=== PATIENT | male | born 1945 | race African-American/Black ===

== ENCOUNTER 2024-12-15 11:22 | Inpatient (IN) | payer MEDICARE ==
[~2024-12-15] VITALS: Ht 167.6 cm; Wt 70.3 kg
[~2024-12-15 11:22] MED LIST: ASPI-1497 PO; ATOR-2 MT; CA/D1TAB7 MT; CIPR-263 MT; CLOP75TA33 PO; FEXO-25 PO; LISI2.5T47 PO; TAMS-54 MT; TAMS-54 PO; TIMO5DRO40 EACHEYE; XALAO EACHEYE
[2024-12-15 11:23] VITALS: O2SAT 89
[2024-12-15 13:16] LABS: BASOPHILS % 0.3 % (0.0-2.0); EOSINOPHILS % 0.0 % (0.0-5.0); LYMPHOCYTES % 9.9 % (20.0-50.0); MEAN PLATELET VOLUME 8.4 fl (7.4-10.4); MONOCYTES % 8.4 % (2.0-8.0); NEUTROPHILS % 81.4 % (40.0-76.0); PLATELET 265 x1000/uL (130-400); RED BLOOD CELL COUNT 2.26 mill/uL (4.7-6.1); RED CELL DISTRIBUTION WIDTH 15.2 % (11.6-14.6)
[2024-12-15 13:19] LABS: HEMOGLOBIN. 6.7 g/dL (14.0-18.0)
[2024-12-15 13:20] LABS: HEMATOCRIT. 20.5 % (42.0-52.0)
[2024-12-15 13:23] LABS: INR 1.1
[2024-12-15 13:41] LABS: CREATININE 1.4 mg/dL (0.6-1.3)
[2024-12-15 13:42] LABS: UREA NITROGEN BLOOD 28 mg/dL (9-23)
[2024-12-15 13:43] LABS: ASPARTATE AMINOTRANSFERASE 19 IU/L (<34)
[2024-12-15 13:44] LABS: BILIRUBIN TOTAL 0.3 mg/dL (0.1-1.0); PROTEIN TOTAL 6.8 g/dL (6.0-8.3)
[2024-12-15] MEDS ORDERED: IPRATROPIUM/ALBUTEROL 0.5-3(2.5)MG/3ML NEB HHN PRN (16:45)
[2024-12-15] MEDS ORDERED: GUAIFENESIN 200MG/10ML SUGAR FREE UDC PO PRN (16:45)
[2024-12-15] MEDS ORDERED: ACETAMINOPHEN 325MG TABLET PO PRN (16:45)
[2024-12-15] MEDS ORDERED: DOCUSATE SODIUM 100MG CAPSULE PO PRN (16:45)
[2024-12-15] MEDS ORDERED: ONDANSETRON HCL 4MG/2ML INJ IV PRN (16:45)
[2024-12-15] MEDS: SODIUM CHLORIDE 0.45% 1,000 ML IV SCH (17:00)
[2024-12-15 17:30] VITALS: BP 125/76; PULSE 60; RESP 20; TEMP 36.3; O2SAT 97
[2024-12-15] MEDS: PANTOPRAZOLE SODIUM 40 MG/VIAL IV SCH (17:49)
[2024-12-15 18:09] LABS: FOLIC ACID (FOLATE) SERUM > 20.00 ng/mL (>5.38); VITAMIN B12 SERUM 434 pg/mL (211-911)
[2024-12-15 18:21] VITALS: BP 125/76; PULSE 60; RESP 20; TEMP 36.3068
[2024-12-15] MEDS ORDERED: CEFTRIAXONE 1,000 MG in DEXT 5% WATER 100 ML IV SCH (18:30)
[2024-12-15 18:40] VITALS: BP 111/62; PULSE 75; RESP 18; TEMP 36.4; O2SAT 98
[2024-12-15 19:14] VITALS: BP 111/62; PULSE 57; RESP 16; TEMP 37.1; O2SAT 99
[2024-12-15 20:20] LABS: CLARITY URINE TURBID (CLEAR); COLOR URINE RED (YELLOW)
[2024-12-15 20:23] LABS: GLUCOSE URINE NEGATIVE (NEGATIVE); KETONES URINE NEGATIVE (NEGATIVE); PH URINE 7.0 (4.5-8.0); PROTEIN URINE 3+ (NEGATIVE); SPECIFIC GRAVITY URINE 1.020 (1.005-1.030)
[2024-12-15 20:24] LABS: NITRITE URINE NEGATIVE (NEGATIVE); OCCULT BLOOD URINE 4+ (NEGATIVE); UROBILINOGEN URINE 0.2 E.U./dL (0.2-1.0)
[2024-12-15 20:29] LABS: BACTERIA URINE NONE SEEN; LEUKOCYTE ESTERASE URINE NEGATIVE (NEGATIVE); RBC URINE TNTC /hpf (0-2)
[2024-12-15] MEDS: CEFTRIAXONE 1GM/50ML 50 ML IV SCH (20:38)
[2024-12-15] MEDS: ATORVASTATIN CALCIUM 40MG TABLET PO SCH (20:38)
[2024-12-15 20:46] LABS: *AMPHETAMINES SCREEN URINE NEGATIVE (NEGATIVE)
[2024-12-15 20:47] LABS: *BARBITURATES SCREEN URINE NEGATIVE (NEGATIVE); *BENZODIAZEPINES SCREEN URINE NEGATIVE (NEGATIVE); *COCAINE SCREEN URINE NEGATIVE (NEGATIVE); CANNABINOID URINE SCREEN NEGATIVE (NEGATIVE); ECSTASY MDMA SCREEN URINE NEGATIVE (NEGATIVE); METHADONE URINE SCREEN NEGATIVE (NEGATIVE); OPIATES URINE SCREEN NEGATIVE (NEGATIVE); PHENCYCLIDINE URINE SCREEN NEGATIVE (NEGATIVE)
[2024-12-15 22:17] LABS: HEPATITIS C AB NON REACTIVE (Neg) (Negative)
[2024-12-15] MEDS: SODIUM CHLORIDE 0.9% 1,000 ML IV ONE (22:51)
[2024-12-16] VITALS: BP 103/51; PULSE 62; RESP 15; TEMP 37; O2SAT 97
[2024-12-16 01:49] LABS: TROPONIN I HIGH SENSITIVITY 13 ng/L (3.0-53)
[2024-12-16 04:00] VITALS: BP 103/51; PULSE 62; RESP 17; TEMP 37.2; O2SAT 98
[2024-12-16 06:53] LABS: BASOPHILS % 0.4 % (0.0-2.0); EOSINOPHILS % 0.5 % (0.0-5.0); HEMATOCRIT. 22.4 % (42.0-52.0); HEMOGLOBIN. 7.5 g/dL (14.0-18.0); LYMPHOCYTES % 16.9 % (20.0-50.0); MEAN PLATELET VOLUME 8.6 fl (7.4-10.4); MONOCYTES % 10.2 % (2.0-8.0); NEUTROPHILS % 72.0 % (40.0-76.0); PLATELET 233 x1000/uL (130-400); RED BLOOD CELL COUNT 2.48 mill/uL (4.7-6.1); RED CELL DISTRIBUTION WIDTH 14.4 % (11.6-14.6)
[2024-12-16 07:23] LABS: TROPONIN I HIGH SENSITIVITY 14 ng/L (3.0-53)
[2024-12-16 07:24] LABS: CREATININE 1.1 mg/dL (0.6-1.3)
[2024-12-16 07:25] LABS: TRIGLYCERIDE 97 mg/dL (0-150); UREA NITROGEN BLOOD 20 mg/dL (9-23)
[2024-12-16 07:26] LABS: LDL CHOLESTEROL 75 mg/dL (5-100); T4 FREE 1.23 ng/dL (0.89-1.76)
[2024-12-16 08:00] VITALS: BP_SYST 104; BP_SYST 120; BP_DIAS 62; PULSE 100; PULSE 64; RESP 19; TEMP 36.8; TEMP 37.2; O2SAT 98
[2024-12-16 12:00] VITALS: BP 104/62; PULSE 100; RESP 19; TEMP 37.2; O2SAT 100
[2024-12-16 16:00] VITALS: BP 140/68; PULSE 100; RESP 22; O2SAT 100
[2024-12-16 20:00] VITALS: BP 153/95; PULSE 95; RESP 22; TEMP 37.7; O2SAT 100
[2024-12-16] MEDS: ACETAMINOPHEN 325MG TABLET PO PRN (21:02)
[2024-12-17] VITALS (10 sets, daily range): BP systolic 100–162; BP diastolic 39–83; PULSE 60–98; RESP 16–26; TEMP 36.4–37.1; O2SAT 97–100
[2024-12-17 07:18] LABS: PLATELET 196 x1000/uL (130-400); RED BLOOD CELL COUNT 2.54 mill/uL (4.7-6.1); RED CELL DISTRIBUTION WIDTH 14.6 % (11.6-14.6)
[2024-12-17 07:22] LABS: CREATININE 1.4 mg/dL (0.6-1.3); UREA NITROGEN BLOOD 19 mg/dL (9-23)
[2024-12-17 07:24] LABS: PHOSPHORUS 3.8 mg/dL (2.5-4.9)
[2024-12-17] MEDS: LISINOPRIL 2.5MG TABLET PO SCH (08:39)
[2024-12-17] MEDS: CEFTRIAXONE 1GM/50ML 50 ML IV SCH (12:54)
[2024-12-18] VITALS (15 sets, daily range): BP systolic 93–130; BP diastolic 41–69; PULSE 57–75; RESP 12–22; TEMP 36.2–37.16964; O2SAT 94–99
[2024-12-18] MEDS ORDERED: IOHEXOL-350 100 ML BOTTLE ONE (12:30)
[2024-12-19] VITALS: BP 129/62; PULSE 63; RESP 15; TEMP 36.7; O2SAT 100
[2024-12-19 04:00] VITALS: BP 128/61; PULSE 58; RESP 21; TEMP 36.6; O2SAT 100
[2024-12-19 07:59] LABS: BASOPHILS % 0.4 % (0.0-2.0); EOSINOPHILS % 3.8 % (0.0-5.0); HEMATOCRIT. 28.2 % (42.0-52.0); HEMOGLOBIN. 9.3 g/dL (14.0-18.0); LYMPHOCYTES % 15.5 % (20.0-50.0); MEAN PLATELET VOLUME 7.9 fl (7.4-10.4); MONOCYTES % 11.9 % (2.0-8.0); NEUTROPHILS % 68.4 % (40.0-76.0); PLATELET 180 x1000/uL (130-400); RED BLOOD CELL COUNT 3.11 mill/uL (4.7-6.1); RED CELL DISTRIBUTION WIDTH 14.9 % (11.6-14.6)
[2024-12-19 08:00] VITALS: BP 129/70; PULSE 57; RESP 18; TEMP 37.2; O2SAT 97
[2024-12-19 08:13] LABS: CREATININE 1.0 mg/dL (0.6-1.3); UREA NITROGEN BLOOD 13 mg/dL (9-23)
[2024-12-19 12:00] VITALS: BP 137/61; PULSE 61; RESP 22; TEMP 36.8; O2SAT 93
[2024-12-19 16:00] VITALS: BP 105/72; PULSE 69; RESP 16; TEMP 36.4; O2SAT 97
[2024-12-19 19:47] VITALS: BP 118/65; PULSE 70; RESP 22; TEMP 37; O2SAT 98
[2024-12-20] VITALS (11 sets, daily range): BP systolic 105–141; BP diastolic 46–88; PULSE 57–85; RESP 15–23; TEMP 36.8–37.503; O2SAT 97–100
[2024-12-20] MEDS: CEFTRIAXONE 1GM/50ML 50 ML IV SCH (12:00)
[2024-12-20 15:59] LABS: BASOPHILS % 0.2 % (0.0-2.0); EOSINOPHILS % 3.5 % (0.0-5.0); HEMATOCRIT. 26.3 % (42.0-52.0); HEMOGLOBIN. 9.0 g/dL (14.0-18.0); LYMPHOCYTES % 12.8 % (20.0-50.0); MEAN PLATELET VOLUME 7.9 fl (7.4-10.4); MONOCYTES % 10.3 % (2.0-8.0); NEUTROPHILS % 73.2 % (40.0-76.0); PLATELET 250 x1000/uL (130-400); RED BLOOD CELL COUNT 2.93 mill/uL (4.7-6.1); RED CELL DISTRIBUTION WIDTH 14.5 % (11.6-14.6)
[2024-12-21] VITALS: BP 118/68; PULSE 56; RESP 16; TEMP 37.1; O2SAT 94
[2024-12-21 04:00] VITALS: BP 115/45; PULSE 57; RESP 19; O2SAT 96
[2024-12-21 06:06] LABS: BASOPHILS % 0.2 % (0.0-2.0); EOSINOPHILS % 6.9 % (0.0-5.0); HEMATOCRIT. 27.5 % (42.0-52.0); HEMOGLOBIN. 9.3 g/dL (14.0-18.0); LYMPHOCYTES % 15.5 % (20.0-50.0); MEAN PLATELET VOLUME 7.7 fl (7.4-10.4); MONOCYTES % 10.7 % (2.0-8.0); NEUTROPHILS % 66.7 % (40.0-76.0); PLATELET 221 x1000/uL (130-400); RED BLOOD CELL COUNT 3.10 mill/uL (4.7-6.1); RED CELL DISTRIBUTION WIDTH 14.9 % (11.6-14.6)
[2024-12-21 06:40] LABS: CREATININE 0.8 mg/dL (0.6-1.3); UREA NITROGEN BLOOD 10 mg/dL (9-23)
[2024-12-21 08:00] VITALS: BP 118/62; PULSE 57; RESP 15; TEMP 37; O2SAT 95
[2024-12-21] MEDS ORDERED: PROPOFOL 10MG/ML 100ML 100 ML IV ONE (12:00)
[2024-12-21] MEDS ORDERED: PROPOFOL 200MG/20ML VIAL IV ONE (12:01)
[2024-12-21] MEDS ORDERED: LIDOCAINE HCL 1% 10 MG/ML 10ML VIAL ONE (12:02)
[2024-12-21] MEDS ORDERED: FENTANYL CITRATE/PF 50MCG/ML 2ML VIAL ONE (12:09)
[2024-12-21] MEDS ORDERED: ONDANSETRON HCL 4MG/2ML INJ ONE (12:26)
[2024-12-21] MEDS ORDERED: DEXAMETHASONE 4MG/ML 1ML VIAL ONE (12:26)
[2024-12-21] MEDS ORDERED: CEFTRIAXONE 1GM/50ML 50 ML IV SCH (13:00)
[2024-12-21] MEDS ORDERED: ONDANSETRON HCL 4MG/2ML INJ IV PRN (13:15)
[2024-12-21] MEDS ORDERED: HYDRALAZINE 20MG/ML VIAL IV PRN ×2 (13:15)
[2024-12-21] MEDS ORDERED: HYDROMORPHONE HCL/PF 1MG/ML INJ IV PRN (13:15)
[2024-12-21 16:00] VITALS: BP 110/80; PULSE 71; RESP 17; TEMP 36.5; O2SAT 97
[2024-12-21 20:00] VITALS: BP 101/57; PULSE 63; RESP 20; TEMP 36.4; O2SAT 93
[2024-12-22] VITALS: BP 104/57; PULSE 56; RESP 19; TEMP 36.3; O2SAT 96
[2024-12-22 04:00] VITALS: BP 114/65; PULSE 57; RESP 14; TEMP 36.9; O2SAT 97
[2024-12-22 08:00] VITALS: BP 113/64; PULSE 57; RESP 23; TEMP 36.8
[2024-12-22 12:00] VITALS: BP 106/60; PULSE 69; RESP 20; TEMP 36.9; O2SAT 97
[2024-12-22 16:00] VITALS: BP 109/54; PULSE 59; RESP 18; TEMP 36.7; O2SAT 96
[2024-12-22 19:33] LABS: BASOPHILS % 0.2 % (0.0-2.0); EOSINOPHILS % 0.6 % (0.0-5.0); HEMATOCRIT. 28.5 % (42.0-52.0); HEMOGLOBIN. 9.5 g/dL (14.0-18.0); LYMPHOCYTES % 11.1 % (20.0-50.0); MEAN PLATELET VOLUME 7.7 fl (7.4-10.4); MONOCYTES % 7.2 % (2.0-8.0); NEUTROPHILS % 80.9 % (40.0-76.0); PLATELET 314 x1000/uL (130-400); RED BLOOD CELL COUNT 3.15 mill/uL (4.7-6.1); RED CELL DISTRIBUTION WIDTH 14.9 % (11.6-14.6)
[2024-12-22 19:48] LABS: CREATININE 1.3 mg/dL (0.6-1.3); UREA NITROGEN BLOOD 18 mg/dL (9-23)
[2024-12-22 20:00] VITALS: BP 127/64; PULSE 67; RESP 18; TEMP 37.1; O2SAT 100
[2024-12-23] VITALS: BP 128/62; PULSE 57; RESP 20; TEMP 37; O2SAT 96
[2024-12-23 04:01] VITALS: BP 121/74; PULSE 53; RESP 19; TEMP 36.9; O2SAT 100
[2024-12-23] MEDS ORDERED: LISI2.5T47 PO (07:44)
[2024-12-23 08:00] VITALS: BP 150/89; PULSE 57; RESP 17; TEMP 36.9; O2SAT 98
[2024-12-23 11:18] VITALS: BP 130/78; PULSE 58; RESP 14; TEMP 36.8; O2SAT 97
[2024-12-23 11:21] VITALS: BP 130/78; PULSE 58; RESP 14; TEMP 98.3
== END 2024-12-23 13:03 | disposition home or self-care (01) | DRG 668 ==
LOC: ER 11:22 → ENRESERV 15:58 → 3WST 17:40
PROVIDERS: ADMIT Student in an Organized Health Care Education/Training Program; ATTEND Student in an Organized Health Care Education/Training Program
PROC: 30233N1 Transfusion of Nonautologous Red Blood Cells into Peripheral Vein, Percutaneous Approach (ICD-10-PCS; principal; 2024-12-15)
PROC: 0T5B8ZZ Destruction of Bladder, Via Natural or Artificial Opening Endoscopic (ICD-10-PCS; 2024-12-21)
DX: C67.9 Malignant neoplasm of bladder, unspecified (principal); N17.0 Acute kidney failure with tubular necrosis; R57.1 Hypovolemic shock; E87.20 Acidosis, unspecified; D62 Acute posthemorrhagic anemia; E83.51 Hypocalcemia; Z79.01 Long term (current) use of anticoagulants; I10 Essential (primary) hypertension; G40.909 Epilepsy, unspecified, not intractable, without status epilepticus; N40.0 Benign prostatic hyperplasia without lower urinary tract symptoms; I95.9 Hypotension, unspecified; E86.0 Dehydration; F41.9 Anxiety disorder, unspecified; R31.0 Gross hematuria; Z79.82 Long term (current) use of aspirin; Z79.899 Other long term (current) drug therapy; Z86.73 Personal history of transient ischemic attack (TIA), and cerebral infarction without residual deficits
CPT/HCPCS: 36415; 36430; 71045; 74178; 80048; 80053; 80061; 80305; 81003; 82270; 82550; 82553; 82607; 82728; 82746; 83036; 83540; 83550; 83605; 83735; 84100; 84145; 84439; 84443; 84484; 85014; 85018; 85025; 85027; 86705; 86850; 86900; 86920; 87340; 93005; 93923; 93970; 96360; 97162; 97166; 99291; A4606; J0696; J1100; J2003; J2405; J2470; J2704; J3010; P9016; Q9967; A4217